=== PATIENT | female | born 1985 | race Caucasian/White ===

== ENCOUNTER 2018-02-10 12:14 | Emergency (ER) ==
[2018-02-10 12:19] VITALS: BP 135/77; TEMP 98.4; BMI 21.3
--- NOTE | 2018-02-10 13:05 | ED.PDOC ---
General ED Provider: Dr. JOHANN BAEZ Chief Complaint: Eye Problem Stated Complaint: EYE Pain and reduced vision Lt visual field with swelling and redness of Lt eyelid. States awakened 3-4 days ago and noted swelling to be present. Notice lt eye vison was blurry. Used OTC Murine and ophthalmic ointment with no benefit. Worsened upon awakening this morning. Has a sensation of sand or gritty feeling of lt eye Time Seen by Physician: 13:45 Mode of Arrival: Walk-In Information Source: Patient Exam Limitations: No limitations Primary Care Provider: ANTONIO VIEIRA Nursing and Triage Documentation Reviewed and Agree: Yes Does patient meet sepsis criteria?: No System Inflammatory Response Syndrome: Not Applicable Sepsis Protocol: For patient's 13 years and over: Temp is 96.8 and below OR 101 and greater Pulse >90 BPM Resp >20/minute Acutely Altered Mental Status Are patient's symptoms suggestive of a new infection, such as: -Pneumonia -Skin, Soft Tissue -Endocarditis -UTI -Bone, Joint Infection -Implantable Device -Acute Abdominal Infection -Wound Infection -Meningitis -Blood Stream Catheter Infection -Unknown EENT Complaint Exam - Eye Complaint/Exam Symptoms Are: Still present, Worse Timing: Constant Initial Severity: Mild Current Severity: Severe Location: Left Character: Reports: Sharp, Dull, Foreign body sensation Aggravating: Reports: Light Alleviating: Reports: None Associated Signs and Symptoms: Denies: Photophobia, Clear drainage, Purulent drainage, Vision impairment, Fever, Swelling Related History: Denies: Similar episode Eye Surgical History: Denies: None Visual Acuity Right Eye: 20/25 Visual Acuity Left Eye: 0 Visual Field: Abnormal Extraocular Movement: Normal Orbit Findings: Normal Globe Findings: Intact Corneal Findings: Clear Fundi: Normal (Inferior aspect of lt fundi appears sl hyperemic) Differential Diagnoses: Detached Retina, Retinal Artery Occlusion, Uveitis, Other (Hordeoleum/) Review of Systems - Review Of Systems Constitutional: Reports: No symptoms Eyes: Reports: No symptoms, Blurred vision, Vision change, Foreign body sensation, Inflammation, Pain Ears, Nose, Mouth, Throat: Reports: No symptoms Respiratory: Reports: No symptoms Cardiac: Reports: No symptoms GI: Reports: No symptoms : Reports: No symptoms Musculoskeletal: Reports: No symptoms Skin: Reports: No symptoms Neurological: Reports: No symptoms Endocrine: Reports: No symptoms Hematologic/Lymphatic: Reports: No symptoms All Other Systems: Reviewed and Negative Past Medical History - Past Medical History Endocrine: Reports: Hypothyroid Cardiovascular: Reports: None Respiratory: Reports: None Hematological: Reports: None Gastrointestinal: Reports: None Genitourinary: Reports: None Neuro/Psych: Reports: None Musculoskeletal: Reports: None Cancer: Reports: None Last Menstrual Period: TOTAL HYSTERECTOMY - Surgical History General Surgical History: Reports: Hysterectomy - Family History Family History: Reports: None - Social History Smoking Status: Current every day smoker, Heavy tobacco smoker Hx Substance Use: No Alcohol Screening: Occasionally - Immunizations Tetanus Shot up to Date: Yes Physical Exam - Physical Exam Appearance: Well-appearing, No pain distress, Well-nourished Ill-appearing: Mild Pain Distress: Mild Eyes: EULA, EOMI, Conjunctiva clear, Conjunctiva inflammed Physician Notification - Case Discussed Physician Notified: Dr Demetri Alfaro at [facility] [address] in [place] Time of Notification: 13:10 (Agreed to see patient in consult) Critical Care Note - Critical Care Note Total Time (mins): 0 Course - Course Vital Signs: Temp Pulse Resp BP Pulse Ox 02/10/18 12:14 98.4 F 101 H 18 135/77 99 Departure - Departure Time of Disposition: 13:20 Disposition: TSF OTHER Discharge Problem: Hordeolum externum left upper eyelid, Visual acuity reduced Instructions: Stye (ED), Blurred Vision (ED) Condition: Fair Pt referred to PMD for follow-up: Yes (Dr Alfaro Opth) IPMP verified?: No Allergies/Adverse Reactions: Allergies ceftriaxone [From Rocephin] Adverse Reaction (Verified 02/10/18 12:19) erythromycin base Adverse Reaction (Verified 02/10/18 12:19) pseudoephedrine [From Sudafed] Adverse Reaction (Verified 02/10/18 12:19) Home Medications: Ambulatory Orders Cholecalciferol (Vitamin D3) [Vitamin D3] 4,000 unit PO DAILY 02/10/18 Fluoxetine HCl [Prozac] 20 mg PO DAILY 02/10/18 Disposition Discussed With: Patient
== END 2018-02-10 13:39 | disposition short-term general hospital (02) ==
LOC: ED 12:14
DX: H00.014 Hordeolum externum left upper eyelid (principal); H53.8 Other visual disturbances; F17.210 Nicotine dependence, cigarettes, uncomplicated
CPT/HCPCS: 99282